=== PATIENT | female | born 1950 | race Caucasian/White ===

== ENCOUNTER 2020-08-06 17:36 | Emergency (ER) | payer MEDICARE ==
[2020-08-06 17:56] VITALS: BP 137/87; PULSE 75
--- NOTE | 2020-08-06 18:30 | EDM.PDOC ---
ED HPI GENERAL MEDICAL PROBLEM - General Chief Complaint: General Stated Complaint: HYPERTENSION Time Seen by Provider: 08/06/20 18:10 Source of Information: Reports: Patient History Limitations: Reports: No Limitations - History of Present Illness INITIAL COMMENTS - FREE TEXT/NARRATIVE: patient presented to the ER with a c/o '' not feeling well'' in general. Reports it started yesterday. No energy and feeling less motivated. No CP, no SOB, no palpitations. h/o DVTs. not on blood thinners anymore, only [id number]. Had just returned from a 15 [address] road trip few days ago. H/o HTN on losartan, and h/o hypothyroidism. She reports she is concerned about dehydration. Haven't been drinking enough liquids. She was c/o moist cough and sinus discharges 2-3 days ago, and was tested negative for COVID. Didn't receive any treatment for sinuses. 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: Musculoskeletal History: Reports: Osteoarthritis Oncologic (Cancer) History: Reports: None Dermatologic History: Reports: Other (See Below) Other Dermatologic History: Sensitive skin - Past Surgical History HEENT Surgical History: Reports: None Cardiovascular Surgical History: Reports: None GI Surgical History: Reports: Appendectomy, Colonoscopy Musculoskeletal Surgical History: Reports: None Dermatological Surgical History: Reports: None Social & Family History - Family History Family Medical History: No Pertinent Family History - Caffeine Use Caffeine Use: Reports: Coffee ED ROS GENERAL - Review of Systems Review Of Systems: See Below Constitutional: Reports: Fatigue HEENT: Reports: No Symptoms Respiratory: Reports: No Symptoms Cardiovascular: Reports: No Symptoms. Denies: Orthopnea, Palpitations Endocrine: Reports: Fatigue GI/Abdominal: Reports: No Symptoms : Reports: No Symptoms Musculoskeletal: Reports: No Symptoms Skin: Reports: No Symptoms Neurological: Reports: No Symptoms ED EXAM, GENERAL - Physical Exam Exam: See Below Exam Limited By: No Limitations General Appearance: Alert, WD/WN, No Apparent Distress Head: Atraumatic, Normocephalic Neck: Normal Inspection Respiratory/Chest: No Respiratory Distress, Lungs Clear Cardiovascular: Normal Peripheral Pulses GI/Abdominal: Normal Bowel Sounds, Soft, Non-Tender Back Exam: Normal Inspection Extremities: Normal Inspection Neurological: Alert, Oriented, CN II-XII Intact Psychiatric: Normal Affect, Normal Mood Course - Vital Signs Last Recorded V/S: Last Vital Signs Temp 36.1 C 08/06/20 17:55 Pulse 75 08/06/20 17:55 Resp 18 08/06/20 17:55 BP 137/87 08/06/20 17:55 Pulse Ox 96 08/06/20 17:55 - Orders/Labs/Meds Orders: Active Orders 24 hr Category Date Time Status EKG Documentation Completion [RC] ASDIRECTED Care 08/06/20 18:17 Active DD [D-DIMER QUANTITATIVE] [COAG] Stat Lab 08/06/20 18:23 Ordered Labs: Laboratory Tests 08/06/20 08/06/20 Range/Units 18:40 18:45 WBC 14.0 H (4.0-11.0) K/uL RBC 5.01 (3.80-5.80) M/uL Hgb 15.4 (11.5-16.5) g/dL Hct 46.4 (37.0-47.0) % MCV 93 (76-96) fL MCH 30.7 (27.0-32.0) pg MCHC 33.2 (31.0-35.0) g/dL RDW 14.7 (11.0-16.0) % Plt Count 249 (150-500) K/uL MPV 9.3 (6.0-10.0) fL Sodium 139 (136-145) mmol/L Potassium 4.2 (3.5-5.1) mmol/L Chloride 102 (98-107) mmol/L Carbon Dioxide 29.5 (21.0-32.0) mmol/L Anion Gap 11.7 (5.0-15.0) mmol/L BUN 25 D (8-26) mg/dL Creatinine 0.84 D (0.55-1.02) mg/dL Est Cr Clr Drug Dosing TNP Estimated GFR (MDRD) > 60 (>60) MLS/MIN BUN/Creatinine Ratio 29.8 H (6-25) Glucose 75 (74-100) mg/dL Calcium 9.0 (8.5-10.1) mg/dL Troponin I < 0.017 (0.000-0.060) ng/mL TSH, Ultra Sensitive 1.849 D (0.358-3.740) uIU/mL - Re-Assessments/Exams Free Text/Narrative Re-Assessment/Exam: 08/06/20 18:31 Patient vitals WNL. Satting well on RA EKG was obtained. NSR, no ischemic changes or arrhythmias. labs were ordered to check on Hgb, TSH and kidney function. Also Trop and Ddimer, due to complaints and h/o DVTs and recent trip. 08/06/20 20:09 vitals remained WNL. Trop and TSH WNL BMP WNL mild leukocytosis given the sinus discharges and feeling facial fullness - decision to treat for sinusitis. Departure - Departure Time of Disposition: 20:23 Disposition: Home, Self-Care 01 Condition: Good Clinical Impression: Sinusitis, acute Qualifiers: Sinusitis location: maxillary Recurrence: non-recurrent Qualified Code(s): J01.00 - Acute maxillary sinusitis, unspecified - Discharge Information *PRESCRIPTION DRUG MONITORING PROGRAM REVIEWED*: Not Applicable *COPY OF PRESCRIPTION DRUG MONITORING REPORT IN PATIENT RHIANNON: Not Applicable Forms: ED Department Discharge Sepsis Event Note (ED) - Evaluation Sepsis Screening Result: No Definite Risk - Focused Exam Vital Signs: Vital Signs Temp Pulse Resp BP Pulse Ox 08/06/20 17:55 36.1 C 75 18 137/87 96 - Problem List & Annotations (1) Sinusitis, acute SNOMED Code(s): 21230113 Code(s): J01.90 - ACUTE SINUSITIS, UNSPECIFIED Status: Acute Priority: Low Current Visit: Yes Qualifiers: Sinusitis location: maxillary Recurrence: non-recurrent Qualified Code(s): J01.00 - Acute maxillary sinusitis, unspecified - Problem List Review Problem List Initiated/Reviewed/Updated: Yes - My Orders Last 24 Hours: My Active Orders 08/06/20 18:17 EKG Documentation Completion [RC] ASDIRECTED 08/06/20 18:23 DD [D-DIMER QUANTITATIVE] [COAG] Stat - Assessment/Plan Last 24 Hours: My Active Orders 08/06/20 18:17 EKG Documentation Completion [RC] ASDIRECTED 08/06/20 18:23 DD [D-DIMER QUANTITATIVE] [COAG] Stat Plan: please take your antibiotics as prescribed Increase fluids intake follow up with your PCP as needed in 3-5 days. Return to the ER if any concerns, chest pain or worsening dizziness
[2020-08-06] MEDS ORDERED: Amoxicillin 500 MG Cap ONE (20:00)
== END 2020-08-06 20:40 | disposition home or self-care (01) ==
LOC: LB.ED 17:36
DX: J01.00 Acute maxillary sinusitis, unspecified (principal); M19.90 Unspecified osteoarthritis, unspecified site; Z91.048 Other nonmedicinal substance allergy status; Z79.82 Long term (current) use of aspirin; Z79.899 Other long term (current) drug therapy
CPT/HCPCS: 36415; 80048; 84443; 84484; 85027; 85379; 93005; 99283; 99284-25; A9270-GY

== ENCOUNTER 2022-07-21 12:40 | Emergency (ER) | payer MEDICARE ==
[2022-07-21] MEDS ORDERED: Sodium Chloride 0.9% 10 ML Syringe FLUSH PRN (12:46)
[2022-07-21 12:51] VITALS: BP 139/89; PULSE 94
[2022-07-21] MEDS: Morphine 4 MG/ML VIAL IVPUSH ONE (13:40)
[2022-07-21] MEDS: Ondansetron 4 MG/2 ML SDV IVPUSH ONE (13:41)
[2022-07-21 14:13] LABS: ESTIMATED GFR 96 mL/min (>60)
[2022-07-21] MEDS: Morphine 4 MG/ML VIAL ONE (14:20)
[2022-07-21] MEDS: Ondansetron 4 MG/2 ML SDV ONE (14:20)
[2022-07-21] MEDS: Sodium Chloride 0.9% 1,000 ML IV ONE (14:54)
[2022-07-21] MEDS: Ketorolac 60 MG/2 ML SDV IVPUSH ONE (15:01)
[2022-07-21] MEDS: Ketorolac 30 MG/ML SDV ONE (15:02)
[2022-07-21] MEDS ORDERED: Ondansetron 4 MG Tab.DIS ONE (16:00)
== END 2022-07-21 16:10 | disposition home or self-care (01) ==
LOC: LB.ED 12:40
DX: K57.90 Diverticulosis of intestine, part unspecified, without perforation or abscess without bleeding (principal); Z91.048 Other nonmedicinal substance allergy status; Z79.82 Long term (current) use of aspirin; Z79.899 Other long term (current) drug therapy; Z90.49 Acquired absence of other specified parts of digestive tract
CPT/HCPCS: 36415; 74177; 80053; 81001; 83605; 85025; 86140; 96361; 96374; 96375; 99283; 99284-25; J1885; J2270; J2405; J7030; Q0162

== ENCOUNTER 2024-03-14 12:43 | Emergency (ER) | payer MEDICARE ==
[2024-03-14] MEDS: Acetaminophen 500 MG Tab PO ONE (14:20)
[2024-03-14 14:33] LABS: BASOPHILS ABSOLUTE AUTO 0.02 K/uL (0.02-0.10); BASOPHILS PERCENT AUTO 0.5 % (0.0-0.5); HEMATOCRIT 41.5 % (37.0-47.0); HEMOGLOBIN 13.9 g/dL (11.5-16.5); LYMPHOCYTES ABSOLUTE AUTO 0.38 K/uL (1.50-4.00); LYMPHOCYTES PERCENT AUTO 8.7 % (20.0-40.0); MEAN CORPUSCULAR HEMOGLOBIN 29.5 pg (27.0-32.0); MEAN CORPUSCULAR HGB CONC 33.5 g/dL (31.0-35.0); MEAN CORPUSCULAR VOLUME 88 fL (76-96); MEAN PLATELET VOLUME 9.5 fL (6.0-10.0); MONOCYTES ABSOLUTE AUTO 0.35 K/uL (0.20-0.80); NEUTROPHILS ABSOLUTE AUTO 3.61 K/uL (2.00-7.50); NEUTROPHILS PERCENT AUTO 82.8 % (45.0-70.0); PLATELET COUNT,PLT 67 K/uL (150-500); RED BLOOD CELL COUNT 4.71 M/uL (3.80-5.80); RED CELL DISTRIBUTION WIDTH 14.7 % (11.0-16.0); WHITE BLOOD CELL COUNT,WBC 4.4 K/uL (4.0-11.0)
[2024-03-14 15:01] LABS: APPEARANCE,URINE CLOUDY (CLEAR); BILIRUBIN,URINE NEGATIVE (NEGATIVE); COLOR,URINE YELLOW; GLUCOSE,URINE 100 mg/dL (NEGATIVE); KETONES,URINE NEGATIVE (NEGATIVE); LEUKOCYTE ESTERASE,URINE NEGATIVE (NEGATIVE); NITRITE,URINE NEGATIVE (NEGATIVE); OCCULT BLOOD,URINE TRACE-INTACT (NEGATIVE); PH,URINE 6.5 (5.0-8.0); PROTEIN,URINE 100 mg/dL (NEGATIVE)
[2024-03-14 15:04] LABS: SQUAMOUS EPITHELIAL CELLS,UR MANY /HPF; WBC,URINE 0-5 /HPF
[2024-03-14 15:04] LABS: INR 1.2 (1.0-3.5); PTT,PARTIAL THROMBOPLSTIN TIME 22.6 SECONDS (24.4-33.2)
[2024-03-14 15:04] LABS: A/G RATIO 0.7 (0.8-2.0); ALBUMIN 2.9 g/dL (3.4-5.0); ANION GAP 12.6 mmol/L (5.0-15.0); BILIRUBIN TOTAL 0.6 mg/dL (0.0-1.0); BUN/CREATININE RATIO 11.7 (6-25); CALCIUM 8.2 mg/dL (8.5-10.1); CARBON DIOXIDE,CO2 26.9 mmol/L (21.0-32.0); CREATININE 0.77 mg/dL (0.55-1.02); EST CRCL DRUG DOSING (CG) 52.23 mL/min; POTASSIUM,K 3.5 mmol/L (3.5-5.1); TROPONIN I HIGH SENSITIVITY 14.4 pg/ml (<=60.4)
[2024-03-14 15:10] LABS: PROTHROMBIN TIME 12.4 sec (9.0-11.5)
[2024-03-14 15:11] LABS: INFLUENZA A NAA NEGATIVE (NEGATIVE); INFLUENZA B NAA NEGATIVE (NEGATIVE); RESPIRATORY SYNCYTIAL VIR NAA NEGATIVE (NEGATIVE)
[2024-03-14 15:13] VITALS: BP 154/96; PULSE 95
[2024-03-14 15:15] LABS: CORONAVIRUS COVID-19 NAA NEGATIVE (NEGATIVE)
== END 2024-03-14 15:45 | disposition home or self-care (01) ==
LOC: LB.ED 12:43
DX: B34.9 Viral infection, unspecified (principal); I10 Essential (primary) hypertension; E03.9 Hypothyroidism, unspecified; K21.9 Gastro-esophageal reflux disease without esophagitis; Z86.16 Personal history of COVID-19; Z91.048 Other nonmedicinal substance allergy status; Z79.82 Long term (current) use of aspirin; Z79.899 Other long term (current) drug therapy; Z79.890 Hormone replacement therapy; Z90.710 Acquired absence of both cervix and uterus
CPT/HCPCS: 0241U; 36415; 71045; 80053; 81001; 83605; 83880; 84484; 85025; 85610; 85730; 93005; 99285; A9270; 93010; 99283

== ENCOUNTER 2024-03-20 12:51 | Emergency (ER) | payer MEDICARE ==
[2024-03-20] MEDS ORDERED: Sodium Chloride 0.9% 10 ML Syringe FLUSH PRN (13:24)
[2024-03-20] MEDS: Sodium Chloride 0.9% 1,000 ML IV SCH (13:43)
[2024-03-20] MEDS: Sodium Chloride 0.9% 50 ML SDV FLUSH SCH (15:38)
[2024-03-20] MEDS: Iopamidol 612 MG/ML 100 ML Bottle IV PRN (15:38)
[2024-03-20] MEDS ORDERED: Doxycycline 100 MG Cap ONE (18:00)
[2024-03-20] MEDS: Morphine 2 MG/ML SYRINGE IVPUSH ONE (18:18)
[2024-03-20 18:51] VITALS: BP 113/65; PULSE 84
[2024-03-26 00:23] LABS: BORRELIA SPECIES SOURCE Blood; BORRELIA SPP DNA DETECTION PCR Detected
== END 2024-03-20 18:15 | disposition home or self-care (01) ==
LOC: LB.ED 12:51
DX: D69.3 Immune thrombocytopenic purpura (principal); B34.9 Viral infection, unspecified; R74.8 Abnormal levels of other serum enzymes; I10 Essential (primary) hypertension; K21.9 Gastro-esophageal reflux disease without esophagitis; E03.9 Hypothyroidism, unspecified; E66.9 Obesity, unspecified; R50.9 Fever, unspecified; D69.6 Thrombocytopenia, unspecified; Z86.16 Personal history of COVID-19; Z79.82 Long term (current) use of aspirin; Z79.899 Other long term (current) drug therapy; Z68.38 Body mass index [BMI] 38.0-38.9, adult; Z91.048 Other nonmedicinal substance allergy status
CPT/HCPCS: 36415; 71045; 74177; 80053; 83605; 85027; 86140; 87476; 93005; 93010; 96360; 96361; 99284; 99285-25; A9270-GY; J3490; J7030; Q9967